=== PATIENT | male | born 1995 ===

== ENCOUNTER 2017-12-21 05:45 | Emergency (ER) | payer SELFPAY ==
[2017-12-21 05:56] VITALS: BP 134/78; RESP 16
[2017-12-21 06:00] VITALS: PULSE 104; TEMP 97.8; O2SAT 97
--- NOTE | 2017-12-21 06:09 | ED PDOC ---
HPI: Psych/Substance Abuse Time Seen by Provider: 12/21/17 05:59 Chief Complaint (Nursing): Substance Abuse Chief Complaint (Provider): Substance Abuse Additional Complaint(s): 22 y/o male was brought to the ED by EMS for alcohol intoxication. Patient was found on the street on bizarre behavior and thus was bought to the ED. Patient admits to drinking alcohol earlier today. Past Medical History Reviewed: Historical Data, Nursing Documentation, Vital Signs Vital Signs: Last Vital Signs Temp 97.8 F 12/21/17 05:59 Pulse 104 H 12/21/17 05:59 Resp 16 12/21/17 05:53 BP 134/78 12/21/17 05:53 Pulse Ox 97 12/21/17 05:59 - Surgical History Surgical History: Appendectomy - Family History Family History: States: Unknown Family Hx - Social History Current smoker - smoking cessation education provided: No Alcohol: Social Drugs: Denies - Allergies Allergies/Adverse Reactions: Allergies Allergy/AdvReac Type Severity Reaction Status Date / Time No Known Allergies Allergy Verified 12/21/17 05:53 Review of Systems ROS Statement: Except As Marked, All Systems Reviewed And Found Negative (As per HPI, otherwise negative) Psych: Positive for: Other (Alcohol intoxication) Physical Exam - Reviewed Nursing Documentation Reviewed: Yes Vital Signs Reviewed: Yes - Physical Exam Appears: Positive for: Well, Non-toxic, No Acute Distress Head Exam: Positive for: ATRAUMATIC, NORMAL INSPECTION, NORMOCEPHALIC Skin: Positive for: Normal Color, Warm, Dry Eye Exam: Positive for: Normal appearance, EOMI, PERRL ENT: Positive for: Normal ENT Inspection Neck: Positive for: Normal Respiratory: Negative for: Accessory Muscle Use Extremity: Positive for: Normal ROM. Negative for: Deformity Neurologic/Psych: Positive for: Alert, Oriented (x3) - ECG O2 Sat by Pulse Oximetry: 97 (RA) Pulse Ox Interpretation: Normal Medical Decision Making Medical Decision Making: Time: 06:05 Upon provider reevaluation patient is feeling better, is medically stable, and requires no further treatment in the ED at this time. Patient will be discharged home. Counseling was provided and all questions were answered regarding diagnosis. There is agreement to discharge plan. Return if symptoms persist or worsen. Clinical Impression: Alcohol Intoxication Scribe Attestation: Documented by Jovi De Leon acting as a scribe for Lilliana Echevarria MD. Scribe Attestation: All medical record entries made by the Scribe were at my direction and personally dictated by me. I have reviewed the chart and agree that the record accurately reflects my personal performance of the history, physical exam, medical decision making, and the department course for this patient. I have also personally directed, reviewed, and agree with the discharge instructions and disposition. Disposition - Clinical Impression Clinical Impression: Alcohol intoxication - Patient ED Disposition Is Patient to be Admitted: No Doctor Will See Patient In The: Office Counseled Patient/Family Regarding: Studies Performed, Diagnosis, Need For Followup - Disposition [facility] Disposition: Routine/Home Disposition Time: 06:25 Condition: GOOD Instructions: Alcohol Intoxication (ED) Print Language: [id number]
== END 2017-12-21 06:25 | disposition home or self-care (01) ==
LOC: H.ER 05:45
DX: F10.129 Alcohol abuse with intoxication, unspecified (principal)